=== PATIENT | male | born 1995 | race Caucasian/White ===

== ENCOUNTER 2017-09-23 19:51 | Emergency (ER) | payer SELFPAY ==
[2017-09-23] MEDS ORDERED: ONDANSETRON DISINTEGRATING 4 MG TAB PO ONE (20:00)
[2017-09-23] MEDS ORDERED: LORazepam 1 MG TAB PO ONE (20:01)
--- NOTE | 2017-09-23 22:19 | EDPHY ---
H & P Stated Complaint: anxiety/hallucinations acid 1 week ago MJ today - Personal History Current Tetanus/Diphtheria Vaccine: Yes Current Tetanus Diphtheria and Acellular Pertussis (TDAP): Yes - Medical/Surgical History Hx Asthma: No Hx Chronic Respiratory Disease: No Hx Diabetes: No Hx Cardiac Disease: No Hx Renal Disease: No Hx Cirrhosis: No Hx Alcoholism: No Hx HIV/AIDS: No Hx Splenectomy or Spleen Trauma: No Other PMH: PMH: depression/anxiety - Social History Smoking Status: Current every day smoker Time Seen by Provider: 09/23/17 20:00 HPI/ROS: Chief complaint: Anxiety after marijuana use History of present illness: This is a 22-year-old male who presents to the emergency department reporting he is having anxiety after using marijuana. He got marijuana from a friend today and therefore was not sure what the source of it was or effect contain any other drugs. He states he started to feel very anxious. He is concerned he started to have hallucinations although he is unable to describe any specific type of auditory or visual hallucination. He has had this problem in the past using marijuana. Will use of benzodiazepine on occasion. Reports associated nausea vomiting. He denies other associated signs or symptoms. Review of systems: A 10 point review of systems was obtained and other than described above was negative ([place] [place]) - Physical Exam Exam: General Appearance: Alert and no distress. Eyes: Pupils equal and round no injection. Respiratory: Chest is non tender, lungs are clear to auscultation. Cardiac: regular rate and rhythm Gastrointestinal: Abdomen is soft and non tender, no masses, bowel sounds normal. Musculoskeletal: Neck is supple and non tender. Extremities have full range of motion and are non tender. Skin: No rashes or lesions. Neurological: Alert and oriented x4. Cranial nerves 2-12 grossly intact. Strength and sensation intact and symmetrical. ([place]) Constitutional: Initial Vital Signs Temperature (C) 36.9 C 09/23/17 19:54 Heart Rate 105 H 09/23/17 19:54 Respiratory Rate 18 09/23/17 19:54 Blood Pressure 174/158 H 09/23/17 19:54 O2 Sat (%) 97 09/23/17 19:54 O2 Delivery Mode Room Air Allergies/Adverse Reactions: No Known Allergies Allergy (Unverified 09/23/17 19:58) Home Medications: Medication Instructions Recorded NK [No Known Home Meds] 09/23/17 Medical Decision Making ED Course/Re-evaluation: Patient seen under the supervision of my secondary supervising physician Dr. Rudy Marshall. Patient presents primarily complaining of anxiety after using marijuana. He is nontoxic. He is given oral Zofran and Ativan. He is allowed to rest in the emergency room for over 2 hr. After sleeping he got up and came to the nurse's station stating he felt fine and that he would like to be discharged home. On my re-evaluation he has no complaints. Again he would like to be discharged. I have discussed avoiding the use of drugs. Home care is discussed. Return precautions are given. ([place]) Differential Diagnosis: Included but limited to polysubstance abuse, anxiety, bipolar, schizophrenia ( [place]) - Data Points Medications Given: Discontinued Medications Lorazepam (Ativan) 1 mg PO EDNOW ONE Stop: 09/23/17 20:02 Last Admin: 09/23/17 20:06 Dose: 1 mg Ondansetron HCl (Zofran Odt) 4 mg PO EDNOW ONE Stop: 09/23/17 20:01 Last Admin: 09/23/17 20:06 Dose: 4 mg Departure - Departure Disposition: Home, Routine, Self-Care Clinical Impression: Marijuana abuse Condition: Good Instructions: Polysubstance Abuse (ED) Additional Instructions: Follow-up with a primary care doctor next week for continued evaluation and care I recommend you avoid the use of drugs If symptoms worsen or new symptoms develop return to the emergency room for recheck Referrals: NONE *PRIMARY CARE P,. [Primary Care Provider] - As per Instructions [facility],. [Clinic] - As per Instructions
[2017-09-23 22:34] VITALS: BP 107/58
== END 2017-09-23 22:32 | disposition home or self-care (01) ==
DX: F12.10 Cannabis abuse, uncomplicated (principal); F17.200 Nicotine dependence, unspecified, uncomplicated